=== PATIENT | female | born 1985 | race Caucasian/White ===

== ENCOUNTER 2016-12-05 11:13 | Emergency (ER) | payer MEDICARE ==
[2016-08-18 13:22] VITALS: BMI 27.4
[~2016-12-05 11:13] MED LIST: ATIVAN2 MG PO; CHRONULAC30 ML PO; CIPRO500 MG PO; COLACE100 MG PO; FLAGYL500 MG PO; LAMICTAL150 MG PO; LINZESS145 MCG PO; LOPRESSOR25 MG PO; MIRALAX17 GM PO; PERCOCET 5-3251 TAB PO; PROCTOCORT28.35 GM RC; ZOFRAN ODT4 MG/UDTAB PO
[2016-12-05 14:03] LABS: BASOPHILS 0.1 % (0.0-2.0); EOSINOPHILS 0.4 % (0-7); HEMATOCRIT 40.3 % (36.0-48.0); HEMOGLOBIN 13.5 g/dL (12-16); IMMATURE GRANULOCYTES 0.3 % (0-5); LYMPHOCYTES 13.8 % (15-50); MCH 31.4 pg (26.0-34.0); MCHC 33.5 g/dL (31.0-37.0); MCV 93.7 fL (80.0-100.0); MEAN PLATELET VOLUME 9.4 fL (7.4-10.4); NEUTROPHILS 77.4 % (40-80); RDW 12.5 % (11.5-14.5); WBC 11.5 10x3/uL (4.8-10.8)
[2016-12-05 14:10] LABS: PLATELET COUNT 274 10x3/uL (130-400)
[2016-12-05 14:20] LABS: ALBUMIN 2.9 g/dL (3.4-5.0); ALKALINE PHOSPHATASE 77 U/L (46-116); ALT (SGPT) 21 U/L (10-68); BILIRUBIN - TOTAL 0.36 mg/dL (0.2-1.3); CALC OSMOLALITY 280 mosm/kg (275-300); CALCIUM 8.5 mg/dL (8.5-10.1); CARBON DIOXIDE 31.8 mmol/L (21.0-32.0); CHLORIDE - SERUM 106 mmol/L (98-107); CREATININE - SERUM 0.6 mg/dL (0.6-1.3); GLUCOSE 96 mg/dL (74-106); PROTEIN - SERUM 6.3 g/dL (6.4-8.2); SODIUM 142 mmol/L (136-145); UREA NITROGEN 6 mg/dL (7-18); eGFR NON AFRICAN AMERICAN > 90 mL/min (90-120)
[2016-12-05 14:33] LABS: CKMB 0.6 U/L (0.0-3.6); CREATINE KINASE 37 UL (21-215)
[2016-12-05 14:36] LABS: TROPONIN-I < 0.017 ng/mL (0.000-0.060)
== END 2016-12-05 14:54 | disposition home or self-care (01) ==
LOC: D.ER 11:13
PROVIDERS: Physician Assistant
DX: T75.4XXA Electrocution, initial encounter (principal); W86.8XXA Exposure to other electric current, initial encounter; R07.9 Chest pain, unspecified; G40.909 Epilepsy, unspecified, not intractable, without status epilepticus; F17.200 Nicotine dependence, unspecified, uncomplicated

== ENCOUNTER 2017-02-25 21:09 | Emergency (ER) | payer MEDICARE, MEDICAID ==
[2016-08-18 13:22] VITALS: BMI 27.4
== END 2017-02-25 23:52 | disposition home or self-care (01) ==
LOC: D.ER 21:09
DX: K02.9 Dental caries, unspecified (principal); K08.89 Other specified disorders of teeth and supporting structures; K04.7 Periapical abscess without sinus; G40.909 Epilepsy, unspecified, not intractable, without status epilepticus

== ENCOUNTER 2018-02-26 16:43 | Emergency (ER) | payer MEDICARE, MEDICAID ==
[2016-08-18 13:22] VITALS: BMI 27.4
== END 2018-02-26 18:48 | disposition home or self-care (01) ==
LOC: D.ER 16:43
DX: T78.40XA Allergy, unspecified, initial encounter (principal); X58.XXXA Exposure to other specified factors, initial encounter; G40.909 Epilepsy, unspecified, not intractable, without status epilepticus